=== PATIENT | female | born 1955 | race Two or more races ===

== ENCOUNTER 2018-04-30 14:30 | Outpatient (CLI) | payer OTHER ==
[~2018-04-30 14:30] MED LIST: KETO10TA2 PO; SYNTHROID75 MCG; SYNTHROID75 MCG PO; TUSSI PRES-B L120 M1 PO
== END 2018-04-30 15:48 | disposition home or self-care (01) ==
LOC: RAD 501 14:30
DX: R05 Cough (principal)

== ENCOUNTER 2018-05-02 15:42 | Outpatient (CLI) | payer OTHER | END 2018-05-02 16:16 | disposition home or self-care (01) | LOC: RAD 15:42 | DX: R68.84 Jaw pain (principal); M27.49 Other cysts of jaw ==

== ENCOUNTER 2018-08-04 00:49 | Emergency (ER) | payer OTHER ==
[~2018-08-04] VITALS: Ht 160 cm; Wt 95.3 kg
[2018-08-04] MEDS ORDERED: AMOX-CLAV 875-1 EACH PO (04:28)
[2018-08-04] MEDS ORDERED: KETO10TA2 PO (04:28)
[2018-08-04] MEDS ORDERED: MUPIROCIN22 GM TOP (04:28)
== END 2018-08-04 04:58 | disposition home or self-care (01) ==
LOC: ER 00:49
DX: L03.011 Cellulitis of right finger (principal)

== ENCOUNTER 2018-12-23 11:46 | Outpatient (CLI) | payer OTHER ==
[~2018-12-23 11:46] MED LIST changes: +AMOX-CLAV 875-1 EACH PO; +MUPIROCIN22 GM TOP
== END 2018-12-23 11:50 | disposition home or self-care (01) ==
LOC: LAB 11:46
DX: J11.1 Influenza due to unidentified influenza virus with other respiratory manifestations (principal)

== ENCOUNTER 2019-10-30 11:09 | Outpatient (CLI) | payer OTHER | END 2019-10-30 11:12 | disposition home or self-care (01) | LOC: RAD 11:09 | DX: M25.561 Pain in right knee (principal); M25.562 Pain in left knee ==

== ENCOUNTER → 2019-11-25 | Outpatient (CLI) | payer OTHER | END | disposition home or self-care (01) | LOC: RAD 17:18 | DX: Z11.1 Encounter for screening for respiratory tuberculosis (principal); R76.12 Nonspecific reaction to cell mediated immunity measurement of gamma interferon antigen response without active tuberculosis ==

== ENCOUNTER → 2020-10-07 | Emergency (ER) | payer OTHER ==
[~2020-10-07] VITALS: Ht 160 cm; Wt 80.3 kg
== END | disposition left against medical advice (07) ==
LOC: ER 13:22
DX: R07.89 Other chest pain (principal); Z03.818 Encounter for observation for suspected exposure to other biological agents ruled out

== ENCOUNTER 2020-12-23 13:20 | Outpatient (CLI) | payer OTHER | END 2020-12-23 13:34 | disposition home or self-care (01) | LOC: RAD 13:20 | PROVIDERS: ATTEND General Practice | DX: M17.0 Bilateral primary osteoarthritis of knee (principal) ==

== ENCOUNTER 2021-02-22 11:34 | Outpatient (CLI) | payer OTHER | END 2021-02-22 11:53 | disposition home or self-care (01) | LOC: NUCLEAR 11:34 | PROVIDERS: ATTEND Orthopaedic Surgery | DX: I87.2 Venous insufficiency (chronic) (peripheral) (principal) ==

== ENCOUNTER 2021-02-24 14:22 | Outpatient (CLI) | payer OTHER | END 2021-02-24 14:25 | disposition home or self-care (01) | LOC: NUCLEAR 14:22 | PROVIDERS: ATTEND Orthopaedic Surgery | DX: M81.0 Age-related osteoporosis without current pathological fracture (principal) ==

== ENCOUNTER 2021-06-16 08:00 | Outpatient (CLI) | payer OTHER | END 2021-06-16 08:30 | disposition home or self-care (01) | LOC: PPH VACUNA 08:00 | PROVIDERS: ATTEND Emergency Medicine Pediatric Emergency Medicine | DX: Z23 Encounter for immunization (principal) ==

== ENCOUNTER 2022-10-26 18:43 | Emergency (ER) | payer OTHER ==
[~2022-10-26] VITALS: Ht 160 cm; Wt 68.0 kg
== END 2022-10-26 20:36 | disposition home or self-care (01) ==
LOC: ER 18:43
DX: L03.113 Cellulitis of right upper limb (principal)